=== PATIENT | male | born 1970 | race Caucasian/White ===

== ENCOUNTER → 2019-12-22 08:33 | Outpatient (CLI) | payer OTHER, SELFPAY ==
[2019-12-22 08:41] LABS: RBC Urine None Seen (0-5/HPF)
[2019-12-22 09:54] LABS: Cholesterol 228 mg/dL (140-199); Glucose 92 mg/dL (70-100); HDL Cholesterol 46 mg/dL (40-60); LDL Cholesterol Calculated 161 mg/dL (<100); Triglycerides 104 mg/dL (35-150)
[2019-12-22 10:23] LABS: Prostate Specific Antigen 1.23 ng/mL (0.10-4.00)
[2019-12-22 11:49] LABS: Appearance Urine UA CLEAR; Bilirubin Urine UA NEGATIVE (NEGATIVE); Color Urine UA YELLOW; Glucose Urine UA NEGATIVE (Negative); Ketones Urine UA NEGATIVE (NEGATIVE); Leukocyte Esterase Urine UA NEGATIVE (NEGATIVE); Nitrite Urine UA NEGATIVE (Negative); Occult Blood Urine UA NEGATIVE (Negative); Protein Urine UA NEGATIVE (Negative); Specific Gravity Urine UA 1.015 (1.000-1.035); Urobilinogen Urine UA 0.2 E.U./dL (0.2); pH Urine UA 7.5 (4.5-8.0)
[2019-12-22 11:57] LABS: Bacteria Urine Many (>30); Culture Indicated Urine Specimen Cultured; Squamous Epithelial Cell Urine 0-1 /HPF (0-5/HPF); WBC Urine 5-10/HPF (0-5/HPF)
== END ==
PROVIDERS: Family Provider Specialist; PCP Specialist; Referring Provider Specialist; Visit Provider Specialist
DX: Z00.01 Encounter for general adult medical examination with abnormal findings (principal); N40.0 Benign prostatic hyperplasia without lower urinary tract symptoms
CPT/HCPCS: 36415; 80061; 81001; 82947; 84153; 87086

== ENCOUNTER 2019-12-22 10:53 | Outpatient (RCR) | payer OTHER, SELFPAY ==
--- NOTE | 2019-12-22 12:42 | PT.OIE ---
Current Diagnoses Pain in right elbow (12/22/19) Lateral epicondylitis, right elbow (12/22/19) Strain of muscle, fascia and tendon of triceps, right arm, subsequent encounter (12/22/19) Visit Care Team Role Provider Type Grady Santos MD Attending Provider Non-Staff Family Provider Primary Care Provider Referring Provider Specialty: Medical Address: [address] [place] [address], [phone] Email: Physical Therapy Initial Evaluation PT-OP-A Visit Information Start: 12/22/19 11:59 Freq: Status: Active Protocol: Document 12/22/19 11:15 DCW (Rec: 12/22/19 12:42 DCW [id number]) Out-Patient Physical Therapy Visit Information Visit Information Visit Type Initial Evaluation Visit Start Time 11:15 Visit Stop Time 11:55 Total Visit Minutes 40 Visit Number 1 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 Pt notes that 2-3 months ago, they were working on door breakdowns with axes and pry-bars, and he got a zing in his elbow, and ever since, has been experiencing some occasional increases in pain with certain activities, which has led to minor limitations. Pt notes that over the past few months, he has been improving, but still gives him problems. Pt report he had thought it had gone away, but then it flared up again after going bowling with his daughter. PT-OP-C Subjective Start: 12/22/19 11:59 Freq: Status: Active Protocol: Document 12/22/19 11:15 DCW (Rec: 12/22/19 12:42 DCW [id number]) OP-PT Subjective Patient Comments Patient Comments I thought about canceling my appointment, because it is a lot better, but it still bothers me with some activities. Patient Reported Progress Improving Patient Questionnaires Quick Dash- Upper Extremity Quick Dash UE Score 20.45% Quick Dash UE Impairment 20 to 39% Impaired (Score 20- 39) OP-PT Pain Assessment Location Right Lateral Elbow Intensity 3 Scale Used Numeric (1 - 10) Description Aching,Dull Frequency Intermittent Pain Aggravating Factors Lifting Other Pain Aggravating Factors Bowling PT-OP-F Manual Assessment Start: 12/22/19 11:59 Freq: Status: Active Protocol: Document 12/22/19 11:15 DCW (Rec: 12/22/19 12:42 DCW [id number]) Manual Assessments Soft Tissue Assessment Soft Tissue Mobility Assessment Mild hypertonia and tenderness to palpation 1/4: complaint of pain, along lateral distal Tricep and common extensor tendon. Joint Mobility Assessment Joint Mobility Assessment Wrist and elbow WNL PT-OP-K Range of Motion Start: 12/22/19 11:59 Freq: Status: Active Protocol: Document 12/22/19 11:15 DCW (Rec: 12/22/19 12:42 DCW [id number]) Elbow/Forearm Range of Motion Elbow/Forearm Right Active Elbow/Forearm ROM WFL Yes ROM Testing Position Sitting Wrist Goniometric Range of Motion Wrist Right Wrist ROM WFL Yes PT-OP-L Special Tests Start: 12/22/19 11:59 Freq: Status: Active Protocol: Document 12/22/19 11:15 DCW (Rec: 12/22/19 12:42 DCW [id number]) Special Tests Elbow Special Tests Medial Epicondylitis Test Results Negative Lateral Epicondylitis Flexed Test Results Negative Lateral Epicondylitis Extended Test Results Mild tenderness PT-OP-M Strength Start: 12/22/19 11:59 Freq: Status: Active Protocol: Document 12/22/19 11:15 DCW (Rec: 12/22/19 12:42 DCW [id number]) Elbow/Forearm Strength Elbow and Forearm Manual Muscle Testing Right Flexion (C6) 5 Normal Extension (C7) 5 Normal Pronation 5 Normal Supination 5 Normal Wrist Strength Wrist Manual Muscle Testing Right Flexion (C7) 5 Normal Extension (C6) 5 Normal Ulnar Deviation 5 Normal Radial Deviation 5 Normal Hand Power Digger Operator/Pinch Strength Hand Dominance Hand Dominance Mixed Hand Strength Right Power Digger Operator (lbs) 135 Comments 3-trial average (150, 130, 125 ) Left Power Digger Operator (lbs) 128 Comments 3-trial average (140, 120, 125 ) PT-OP-T Assessment and Plan Start: 12/22/19 11:59 Freq: Status: Active Protocol: Document 12/22/19 11:15 DCW (Rec: 12/22/19 12:42 DCW [id number]) Physical Therapy Assessment Rehab Potential Rehabilitation Potential Excellent Evaluation Complexity Number of Personal Factors/Comorbidities 0 Number of Body Systems Impaired 1-2 Clinical Presentation at Evaluation Stable Impairments Impairments Soft Tissue Mobility,Tone Goals One Impairment Pt experiences pain with extension while 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 Pt's symptoms largely appear to be suggestive of a triceps strain , as well as potential lateral epicondylitis. Pt admits that he has just been trying to work through it, which has limited his ability to properly heal. Patient and therapist are in agreement that with pt's very physical job and his independent work out routine, he is likley inhibiting healing, and pt agrees to take it down a notch. Patient is likely to continue to improve independently without need for further skilled therapy, however pt's chart will be left open for one month in case pt notices a change/ worsening in symptoms. If pt does not schedule a follow-up appointment within one month, he will be discharged at that time. Physical Therapy Plan Frequency and Duration Frequency of Treatment 2x/Week Duration of Treatment 6 weeks Plan of Care Start Date 12/22/19 Plan of Care End Date 02/02/20 Therapeutic Interventions Therapeutic Interventions Home Exercise Program,Manual Therapy,Patient/Caregiver Education,Self-Care/Home Management,Therapeutic Activities,Therapeutic Exercises Modalities Cold Pack/Ice Massage,Electric Stimulation,Hot Packs, Iontophoresis,Ultrasound Next Visit Focus/Plan Next Note Type Treatment Note Next Visit Plan Assess pt improvement with independent exercises, STM, possible use of Iontophoresis with Dexamethasone, 4 mg/mL
--- NOTE | 2019-12-22 12:42 | PT.OPPOC ---
Physical, Occupational & Speech Therapy At [facility] Current Diagnoses Pain in right elbow (12/22/19) Lateral epicondylitis, right elbow (12/22/19) Strain of muscle, fascia and tendon of triceps, right arm, subsequent encounter (12/22/19) Visit Care Team Role Provider Type Grady Santos MD Attending Provider Non-Staff Family Provider Primary Care Provider Referring Provider Specialty: Medical Address: [address] [place] [address], [phone] Email: Plan Of Care PT-OP-T Assessment and Plan Start: 12/22/19 11:59 Freq: Status: Active Protocol: Document 12/22/19 11:15 DCW (Rec: 12/22/19 12:42 DCW [id number]) Physical Therapy Assessment Rehab Potential Rehabilitation Potential Excellent Evaluation Complexity Number of Personal Factors/Comorbidities 0 Number of Body Systems Impaired 1-2 Clinical Presentation at Evaluation Stable Impairments Impairments Soft Tissue Mobility,Tone Goals One Impairment 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 Pt's symptoms largely appear to be suggestive of a triceps strain , as well as potential lateral epicondylitis. Pt admits that he has just been trying to work through it, which has limited his ability to properly heal. Patient and therapist are in agreement that with pt's very physical job and his independent work out routine, he is likley inhibiting healing, and pt agrees to take it down a notch. Patient is likely to continue to improve independently without need for further skilled therapy, however pt's chart will be left open for one month in case pt notices a change/ worsening in symptoms. If pt does not schedule a follow-up appointment within one month, he will be discharged at that time. Physical Therapy Plan Frequency and Duration Frequency of Treatment 2x/Week Duration of Treatment 6 weeks Plan of Care Start Date 12/22/19 Plan of Care End Date 02/02/20 Therapeutic Interventions Therapeutic Interventions Home Exercise Program,Manual Therapy,Patient/Caregiver Education,Self-Care/Home Management,Therapeutic Activities,Therapeutic Exercises Modalities Cold Pack/Ice Massage,Electric Stimulation,Hot Packs, Iontophoresis,Ultrasound Next Visit Focus/Plan Next Note Type Treatment Note Next Visit Plan Assess pt improvement with independent exercises, STM, possible use of Iontophoresis with Dexamethasone, 4 mg/mL Plan of Care Dates Plan of Care Start Date 12/22/19 Plan of Care End Date 02/02/20 Electronically Signed by: Isidoro Higgins, PT 12/22/19 [id number] Please Sign and Return: I have reviewed this Plan of Care and certify that the skilled therapy services above are required to meet the patient?s needs. Physician Signature Date Printed Name and Credentials Clinical Instructor Signature Printed Name and Credentials
--- NOTE | 2020-06-05 17:18 | PT.OPDS ---
Current Diagnoses Pain in right elbow (12/22/19) Lateral epicondylitis, right elbow (12/22/19) Strain of muscle, fascia and tendon of triceps, right arm, subsequent encounter (12/22/19) Visit Care Team Role Provider Type Grady Santos MD Attending Provider Non-Staff Family Provider Primary Care Provider Referring Provider Specialty: Medical Address: [address] [place] [address], [phone] Email: Visit Number Visit Number 1 Discharge Summary PT-OP-B Current Condition Start: 12/22/19 11:59 Freq: Status: Active Protocol: Document 12/22/19 11:15 DCW (Rec: 12/22/19 12:42 DCW [id number]) Current Condition History of Current Condition Onset Date two months Current Complaints R triceps and forearm tenderness History of Current Condition 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 Pt notes that 2-3 months ago, they were working on door breakdowns with axes and pry-bars, and he got a zing in his elbow, and ever since, has been experiencing some occasional increases in pain with certain activities, which has led to minor limitations. Pt notes that over the past few months, he has been improving, but still gives him problems. Pt report he had thought it had gone away, but then it flared up again after going bowling with his daughter. PT-OP-C Subjective Start: 12/22/19 11:59 Freq: Status: Active Protocol: Document 12/22/19 11:15 DCW (Rec: 12/22/19 12:42 DCW [id number]) OP-PT Subjective Patient Comments Patient Comments I thought about canceling my appointment, because it is a lot better, but it still bothers me with some activities. Patient Reported Progress Improving Patient Questionnaires Quick Dash- Upper Extremity Quick Dash UE Score 20.45% Quick Dash UE Impairment 20 to 39% Impaired (Score 20- 39) OP-PT Pain Assessment Location Right Lateral Elbow Intensity 3 Scale Used Numeric (0 - 10) Description Aching,Dull Frequency Intermittent Pain Aggravating Factors Lifting Other Pain Aggravating Factors Bowling PT-OP-F Manual Assessment Start: 12/22/19 11:59 Freq: Status: Active Protocol: Document 12/22/19 11:15 DCW (Rec: 12/22/19 12:42 DCW [id number]) Manual Assessments Soft Tissue Assessment Soft Tissue Mobility Assessment Mild hypertonia and tenderness to palpation 1/4: complaint of pain, along lateral distal Tricep and common extensor tendon. Joint Mobility Assessment Joint Mobility Assessment Wrist and elbow WNL PT-OP-K Range of Motion Start: 12/22/19 11:59 Freq: Status: Active Protocol: Document 12/22/19 11:15 DCW (Rec: 12/22/19 12:42 DCW [id number]) Elbow/Forearm Range of Motion Elbow/Forearm Right Active Elbow/Forearm ROM WFL Yes ROM Testing Position Sitting Wrist Goniometric Range of Motion Wrist Right Wrist ROM WFL Yes PT-OP-L Special Tests Start: 12/22/19 11:59 Freq: Status: Active Protocol: Document 12/22/19 11:15 DCW (Rec: 12/22/19 12:42 DCW [id number]) Special Tests Elbow Special Tests Medial Epicondylitis Test Results Negative Lateral Epicondylitis Flexed Test Results Negative Lateral Epicondylitis Extended Test Results Mild tenderness PT-OP-M Strength Start: 12/22/19 11:59 Freq: Status: Active Protocol: Document 12/22/19 11:15 DCW (Rec: 12/22/19 12:42 DCW [id number]) Elbow/Forearm Strength Elbow and Forearm Manual Muscle Testing Right Flexion (C6) 5 Normal Extension (C7) 5 Normal Pronation 5 Normal Supination 5 Normal Wrist Strength Wrist Manual Muscle Testing Right Flexion (C7) 5 Normal Extension (C6) 5 Normal Ulnar Deviation 5 Normal Radial Deviation 5 Normal Hand Sales Service Route Manager/Pinch Strength Hand Dominance Hand Dominance Mixed Hand Strength Right Sales Service Route Manager (lbs) 135 Comments 3-trial average (150, 130, 125 ) Left Sales Service Route Manager (lbs) 128 Comments 3-trial average (140, 120, 125 ) PT-OP-T Assessment and Plan Start: 12/22/19 11:59 Freq: Status: Active Protocol: Document 06/05/20 17:17 DCW (Rec: 06/05/20 17:17 DCW [id number]) Physical Therapy Assessment Assessment Summary Assessment Pt did not return phone calls from scheduling department following reopening of clinic after Covid-19 closure. Pt will be discharged from skilled therapy at this time.
== END 2020-06-06 08:25 ==
LOC: PHYS 10:53
PROVIDERS: Family Provider Specialist; PCP Specialist; Referring Provider Specialist; Visit Provider Specialist
DX: S46.311A Strain of muscle, fascia and tendon of triceps, right arm, initial encounter (principal); S46.311D Strain of muscle, fascia and tendon of triceps, right arm, subsequent encounter; M25.521 Pain in right elbow; M77.11 Lateral epicondylitis, right elbow
CPT/HCPCS: 97161

== ENCOUNTER 2020-04-13 05:55 | Emergency (ER) | payer OTHER, SELFPAY ==
[2020-04-13 06:04] VITALS: BP 154/92; PULSE 54; RESP 18; TEMP 36.6; O2SAT 96
--- NOTE | 2020-04-13 06:20 | DI.CT.S_ITS ---
PROCEDURE: CT KIDNEY URETER BLADDER (KUB) INDICATIONS: R flank pain, radiation to groin TECHNIQUE: Noncontrast 5 mm thick sections acquired from the diaphragms to the symphysis. 5 mm thick coronal and sagittal reformats were then performed. For radiation dose reduction, the following was used: automated exposure control, adjustment of mA and/or kV according to patient size. COMPARISON: None. FINDINGS: Image quality: Excellent. Lung bases: Lung bases are clear. Heart size is normal. Urinary system: Both kidneys are normal in size. Bilateral renal cysts are noted. There is prominence of right renal collecting system and right ureter extending to the level of right UVJ with 4 mm stone seen within right UVJ. Mild right perinephric fat stranding is seen. There is no left-sided hydronephrosis or perinephric fat stranding. Left ureter is within normal limits. Bladder wall thickness is normal; no calcified bladder stones. Other solid organs: Liver is normal in size. Gallbladder is unremarkable. Pancreas is normal in contours. Spleen is normal in size. No adrenal nodules. Peritoneum and bowel: Unenhanced bowel loops demonstrate normal wall thickness and caliber. No free fluid or air. The appendix is visualized and is within normal limits. Nodes and vessels: No retroperitoneal or mesenteric adenopathy by size criteria. Aorta and inferior vena cava are normal in caliber. Abdominal wall: No ventral hernias. Pelvis: No free pelvic fluid. No inguinal hernias or adenopathy. Bones: No suspicious bony lesions. No vertebral body compression fractures. Degenerative disc disease at L4-5 and L5-S1 levels are seen. IMPRESSION: 1. 4 mm right UVJ stone with mild right-sided hydronephrosis and hydroureter and mild right perinephric fat stranding. 2. No left-sided renal stone hydronephrosis. Normal-appearing left ureter and urinary bladder. 3. Normal appendix. No free fluid or free air. Dictated by: Ricky Urbina M.D. on 04/13/2020 at 7:28 Approved by: Ricky Urbina M.D. on 04/13/2020 at 7:31
[2020-04-13] MEDS: ONDANSETRON 4 MG/2 ML INJ IV (06:28)
[2020-04-13] MEDS: SODIUM CHLORIDE 0.9% 1,000 ML 1000 ML IV (06:28)
[2020-04-13] MEDS: KETOROLAC 60 MG/2 ML VIAL 15 MG IV (06:29)
[2020-04-13 06:30] LABS: Add Manual Diff / Slide Review NO; Basophils Absolute Auto 0 /uL (0-100); Basophils Percent Auto 0.7 % (0-2); Eosinophils Absolute Auto 300 /uL (0-450); Eosinophils Percent Auto 3.9 % (2-4); Hematocrit 44.8 % (41-53); Hemoglobin 15.4 g/dL (13.5-17.5); Lymphocytes Absolute Auto 2200 /uL (1100-4500); Lymphocytes Percent Auto 30.7 % (25-40); Mean Corpuscular HGB Conc 34.4 % (30-36); Mean Corpuscular Hemoglobin 29.2 PG (26-34); Mean Corpuscular Volume 84.7 fL (80-100); Monocytes Absolute Auto 600 /uL (0-900); Monocytes Percent Auto 8.5 % (3-14); Neutrophils Absolute Auto 4100 /uL (1500-7000); Neutrophils Percent Auto 56.2 % (50-75); Platelet Count 257 X10^3/uL (150-400); Red Blood Cell Count 5.28 X10^6/uL (4.5-5.9); Red Cell Distribution Width 13.7 % (11.6-14.8); White Blood Cell Count 7.3 X10^3/uL (4.5-11.0)
[2020-04-13 06:38] LABS: BUN Creatinine Ratio 15.2 (6-22); Blood Urea Nitrogen 16 mg/dL (9-20); Calcium 8.6 mg/dL (8.4-10.2); Carbon Dioxide 24 mmol/L (22-32); Chloride 105 mmol/L (98-107); Estimated Glomerular Filt Rate > 60.0 mL/min (>60); Glucose 93 mg/dL (70-100); HEMOLYSIS < 15 (0-50); Potassium 3.9 mmol/L (3.4-5.1); Sodium 138 mmol/L (137-145)
--- NOTE | 2020-04-13 06:45 | ED.BACK ---
HPI - Back Pain/Injury General Chief Complaint: Back Pain/Injury Stated Complaint: right flank pain Time Seen by Provider: 04/13/20 05:55 Source: patient Mode of arrival: Ambulatory Limitations: no limitations History of Present Illness HPI Narrative: 49-year-old male nonsmoker with noncontributory medical history presents with a chief complaint of severe, sudden onset right flank pain with radiation into the groin. He denies provocation or palliation. He denies dysuria, frequency or urgency. He is nauseated but denies any vomiting. He denies definitive diagnosis of prior kidney stone but has had 1 prior episode MD Complaint: back pain Onset (ago): hour(s) Duration: intermittent Location: right flank Severity: moderate Quality: burning and sharp Radiation: flank Relieving factors: none Exacerbating factors: none Related Data Previous Rx's Medication Instructions Recorded cephalexin [Keflex] 500 mg PO QID 7 Days #28 cap 04/13/20 hydrocodone-acetaminophen 1 tab PO Q4-6H PRN #10 tab 04/13/20 ketorolac 10 mg PO Q6H PRN #14 tab 04/13/20 ondansetron 4 mg PO TID-QID PRN #10 tab 04/13/20 Allergies Allergy/AdvReac Type Severity Reaction Status Date / Time No Known Drug Allergies Allergy Verified 04/13/20 06:13 Review of Systems Constitutional Constitutional: Denies chills, Denies fatigue, Denies fever(s), Denies frequent falls, Denies lethargy and Denies weakness Eyes Eyes: Denies change in vision, Denies eye discharge, Denies irritation and Denies loss of vision ENT Ears, Nose, Mouth, and Throat: Denies change in voice, Denies dizziness, Denies neck pain, Denies sore throat and Denies throat swelling Cardiovascular Cardiovascular: Denies chest pain, Denies irregular heart rhythm, Denies lightheadedness, Denies palpitations, Denies dyspnea, Denies dyspnea on exertion and Denies orthopnea Respiratory Respiratory: Denies cough, Denies dyspnea, Denies dyspnea on exertion and Denies wheezing Gastrointestinal Gastrointestinal: Denies abdominal pain, Denies change in bowel habits, Denies diarrhea, Denies nausea and Denies vomiting Musculoskeletal Musculoskeletal: Denies neck pain and Denies numbness Integumentary/Breasts Skin/Breast: Denies pruritus, Denies erythema, Denies rash and Denies wounds Neurologic Neurologic: Denies behavioral changes, Denies confusion, Denies dizziness, Denies frequent falls, Denies loss of vision, Denies numbness and Denies weakness Psychiatric Psychiatric: Denies anxiety, Denies behavioral changes, Denies confusion, Denies depression, Denies homicidal ideation and Denies suicidal ideation Endocrine Endocrine: Denies fatigue, Denies flushing and Denies palpitations Hematologic/Lymphatic Hematologic/Lymphatic: Denies easy bruising Allergic/Immunologic Allergic/Immunologic: Denies urticaria, Denies throat swelling and Denies wheezing Patient History Social History Smoking Status: Never smoker Smoking Status: Never smoker alcohol intake frequency: a few times a month Substance Use Type: does not use Exam Narrative Exam Narrative: GENERAL: [49] year old patient appears stated age. Well-nourished, well-developed patient, in mild distress. Rubbing his flank, pacing HEAD: Atraumatic. Normocephalic. EYES: Pupils equal round and reactive. Extraocular motions intact. No scleral icterus. No injection or drainage. ENT: Nose without bleeding, purulent drainage. Throat without erythema, tonsillar hypertrophy or exudate. Airway patent. NECK: Trachea midline. Non tender CARDIOVASCULAR: Regular rate and rhythm without murmurs, gallops, or rubs. RESPIRATORY: Clear to auscultation. Breath sounds equal bilaterally. No wheezes, rales, or rhonchi. GASTROINTESTINAL: Abdomen soft, non-tender, nondistended. EXTREMITIES: No edema or joint tenderness. BACK: Nontender without deformity or crepitance. No flank tenderness. NEURO: AOx3. SKIN: No rash or erythema of visible areas Initial Vital Signs Initial Vital Signs: Vital Signs Temperature 97.9 F 04/13/20 06:04 Pulse Rate 54 L 04/13/20 06:04 Respiratory Rate 18 04/13/20 06:04 Blood Pressure 154/92 H 04/13/20 06:04 Pulse Oximetry 96 04/13/20 06:04 Course Orders Ordered: Discontinued Medications Hydromorphone HCl (Dilaudid) 1 mg IV NOW ONE Stop: 04/13/20 07:24 Last Admin: 04/13/20 07:37 Dose: 1 mg Documented by: RSTONE Sodium Chloride (Normal Saline 0.9%) 1,000 mls @ 1,000 mls/hr IV BOLUS ONE Stop: 04/13/20 07:19 Last Infusion: 04/13/20 07:28 Dose: 0 mls/hr Documented by: Admin: 04/13/20 06:28 Dose: 1,000 mls/hr Documented by: LAVELLE Ketorolac Tromethamine (Toradol) 15 mg IV NOW ONE Stop: 04/13/20 06:21 Last Admin: 04/13/20 06:29 Dose: 15 mg Documented by: LAVELLE Ondansetron HCl (Zofran) 4 mg IV NOW ONE Stop: 04/13/20 06:21 Last Admin: 04/13/20 06:28 Dose: 4 mg Documented by: LAVELLE Vital Signs Vital signs: Vital Signs - 8 hr 04/13/20 06:04 04/13/20 07:40 Temperature 97.9 F Pulse Rate 54 L 49 L Respiratory Rate 18 18 Blood Pressure 154/92 H Blood Pressure [Right Arm] 153/71 H Pulse Oximetry 96 98 MDM - Back Pain/Injury Lab Data Result diagrams: 04/13/20 06:20 04/13/20 06:20 Labs: Lab Results 04/13/20 04/13/20 Range/Units 06:20 06:20 WBC 7.3 (4.5-11.0) X10^3/uL RBC 5.28 (4.5-5.9) X10^6/uL Hgb 15.4 (13.5-17.5) g/dL Hct 44.8 (41-53) % MCV 84.7 (80-100) fL MCH 29.2 (26-34) PG MCHC 34.4 (30-36) % RDW 13.7 (11.6-14.8) % Plt Count 257 (150-400) X10^3/uL Neut % (Auto) 56.2 (50-75) % Lymph % (Auto) 30.7 (25-40) % [place] % (Auto) 8.5 (3-14) % Eos % (Auto) 3.9 (2-4) % Baso % (Auto) 0.7 (0-2) % Neut # (Auto) 4100 (4534-7642) /uL Lymph # (Auto) 2200 (0867-5541) /uL [place] # (Auto) 600 (0-900) /uL Eos # (Auto) 300 (0-450) /uL Baso # (Auto) 0 (0-100) /uL Sodium 138 (137-145) mmol/L Potassium 3.9 (3.4-5.1) mmol/L Chloride 105 (98-107) mmol/L Carbon Dioxide 24 (22-32) mmol/L BUN 16 (9-20) mg/dL Creatinine 1.05 (0.66-1.25) mg/dL Estimated GFR > 60.0 (>60) mL/min BUN/Creatinine Ratio 15.2 (6-22) Glucose 93 (70-100) mg/dL Calcium 8.6 (8.4-10.2) mg/dL Imaging Data CT scan - abdomen/pelvis: Radiologist's Impression: [address] [address] [address] Scan Report Signed Patient: Mani Donald GMR#: [id number] : 1970Acct:[id number] Age/Sex: 49 / MDate of Service: 04/13/20 Loc: ED Accession Number: [id number] Procedure: CT kidney ureter bladder (KUB) Ordering Provider: Rambo García D.O. PROCEDURE: CT KIDNEY URETER BLADDER (KUB) INDICATIONS: R flank pain, radiation to groin TECHNIQUE: Noncontrast 5 mm thick sections acquired from the diaphragms to the symphysis. 5 mm thick coronal and sagittal reformats were then performed. For radiation dose reduction, the following was used: automated exposure control, adjustment of mA and/or kV according to patient size. COMPARISON: None. FINDINGS: Image quality: Excellent. Lung bases: Lung bases are clear. Heart size is normal. Urinary system: Both kidneys are normal in size. Bilateral renal cysts are noted. There is prominence of right renal collecting system and right ureter extending to the level of right UVJ with 4 mm stone seen within right UVJ. Mild right perinephric fat stranding is seen. There is no left-sided hydronephrosis or perinephric fat stranding. Left ureter is within normal limits. Bladder wall thickness is normal; no calcified bladder stones. Other solid organs: Liver is normal in size. Gallbladder is unremarkable. Pancreas is normal in contours. Spleen is normal in size. No adrenal nodules. Peritoneum and bowel: Unenhanced bowel loops demonstrate normal wall thickness and caliber. No free fluid or air. The appendix is visualized and is within normal limits. Nodes and vessels: No retroperitoneal or mesenteric adenopathy by size criteria. Aorta and inferior vena cava are normal in caliber. Abdominal wall: No ventral hernias. Pelvis: No free pelvic fluid. No inguinal hernias or adenopathy. Bones: No suspicious bony lesions. No vertebral body compression fractures. Degenerative disc disease at L4-5 and L5-S1 levels are seen. IMPRESSION: 1. 4 mm right UVJ stone with mild right-sided hydronephrosis and hydroureter and mild right perinephric fat stranding. 2. No left-sided renal stone hydronephrosis. Normal-appearing left ureter and urinary bladder. 3. Normal appendix. No free fluid or free air. Dictated by: Ricky Urbina M.D. on 04/13/2020 at 7:28 Approved by: Ricky Urbina M.D. on 04/13/2020 at 7:31 Discharge Plan Departure Patient Disposition: Home Clinical Impression: Kidney calculus Discharge Date/Time: 04/13/20 08:36 Instructions: DI for Kidney Stones Activity Restrictions/Additional Instructions: *You have been diagnosed with [right-sided kidney stone] *What to do: *Take medications as directed *Follow up with your primary care provider in 2-3 days, call for an appointment. Let them know you were seen in the Emergency Department and that we ask that you be seen in follow up *Return to ER if you should have any new, worsening or concerning symptoms Prescriptions: New hydrocodone-acetaminophen 5-325 mg tablet 1 tab PO Q4-6H PRN (Reason: pain) Qty: 10 RF: 0 cephalexin [Keflex] 500 mg capsule 500 mg PO QID 7 Days Qty: 28 RF: 0 ketorolac 10 mg tablet 10 mg PO Q6H PRN (Reason: pain) Qty: 14 RF: 0 ondansetron 4 mg tablet,disintegrating 4 mg PO TID-QID PRN (Reason: nausea and vomiting) Qty: 10 RF: 0 Referrals: Denice Unger MD [Physician] - Grady Santos MD [Primary Care Provider] -
[2020-04-13] MEDS: HYDROMORPHONE 1 MG INJ IV (07:37)
[2020-04-13 07:40] VITALS: BP 153/71; PULSE 49; RESP 18; O2SAT 98
[2020-04-13 08:34] VITALS: BP 132/78; PULSE 50; RESP 16; O2SAT 98
== END 2020-04-13 08:36 | disposition home or self-care (01) ==
PROVIDERS: Emergency Provider Emergency Medicine; Family Provider Specialist; PCP Specialist
DX: N20.0 Calculus of kidney (principal); R11.0 Nausea; Z87.442 Personal history of urinary calculi
CPT/HCPCS: 36415; 74176; 80048; 85025; 96361; 96374; 96375; 99284; J1170; J1885; J2405

== ENCOUNTER → 2022-05-15 09:52 | Outpatient (CLI) | payer OTHER, SELFPAY ==
[2022-05-15 11:16] LABS: Add Manual Diff / Slide Review NO; Basophils Absolute Auto 0 /uL (0-100); Basophils Percent Auto 0.6 % (0-2); Eosinophils Absolute Auto 200 /uL (0-450); Eosinophils Percent Auto 2.7 % (2-4); Hematocrit 49.2 % (41-53); Hemoglobin 16.8 g/dL (13.5-17.5); Lymphocytes Absolute Auto 1600 /uL (1100-4500); Lymphocytes Percent Auto 20.6 % (25-40); Mean Corpuscular HGB Conc 34.2 % (30-36); Mean Corpuscular Hemoglobin 29.1 PG (26-34); Mean Corpuscular Volume 85.2 fL (80-100); Monocytes Absolute Auto 600 /uL (0-900); Monocytes Percent Auto 7.2 % (3-14); Neutrophils Absolute Auto 5500 /uL (1500-7000); Neutrophils Percent Auto 68.9 % (50-75); Platelet Count 297 X10^3/uL (150-400); Red Blood Cell Count 5.77 X10^6/uL (4.5-5.9); Red Cell Distribution Width 14.4 % (11.6-14.8)
[2022-05-15 11:25] LABS: Appearance Urine UA CLOUDY; Bilirubin Urine UA NEGATIVE (NEGATIVE); Color Urine UA YELLOW; Glucose Urine UA TRACE g/dL (Negative); Ketones Urine UA NEGATIVE (NEGATIVE); Leukocyte Esterase Urine UA NEGATIVE (NEGATIVE); Nitrite Urine UA NEGATIVE (Negative); Occult Blood Urine UA NEGATIVE (Negative); Protein Urine UA 1+ (Negative); Specific Gravity Urine UA 1.015 (1.000-1.035); Urobilinogen Urine UA 0.2 E.U./dL (0.2); pH Urine UA 7.5 (4.5-8.0)
[2022-05-15 11:26] LABS: Alanine Aminotransferase 33 IU/L (<50); Albumin 4.2 g/dL (3.5-5.0); Albumin Globulin Ratio 1.4 (1.0-2.8); Alkaline Phosphatase 108 U/L (38-126); Aspartate Aminotransferase 25 IU/L (17-59); BUN Creatinine Ratio 18.1 (6-22); Blood Urea Nitrogen 15 mg/dL (9-20); Carbon Dioxide 29 mmol/L (22-32); Chloride 102 mmol/L (98-107); Estimated Glomerular Filt Rate > 60 mL/min (>60); Globulin 3.1 g/dL (1.7-4.1); Glucose 99 mg/dL (70-100); HEMOLYSIS < 15 (0-50); Sodium 140 mmol/L (137-145); Total Protein 7.3 g/dL (6.3-8.2)
[2022-05-15 11:35] LABS: RBC Urine 0-1/HPF (0-5/HPF)
[2022-05-15 11:36] LABS: Amorphous Sediment Urine 3+; Bacteria Urine Many (>30); Culture Indicated Urine Cult Not Indicated; Mucus Urine 2+ (Negative); WBC Urine None Seen (0-5/HPF)
[2022-05-15 12:35] LABS: HIV 1 & 2 Ab/Ag 4th Gen Combo NEGATIVE (NEGATIVE); Hep C Virus Ab w/Reflex Quant NEGATIVE s/c (NEGATIVE)
[2022-05-16 03:49] LABS: Hepatitis B Core AB w/Reflex Negative (Negative)
[2022-05-19 13:33] LABS: QuantiFERON Mitogen Value >10.00 IU/mL (.); QuantiFERON TB Gold Plus Negative (Negative)
== END ==
PROVIDERS: Family Provider Specialist; PCP Specialist
DX: L40.0 Psoriasis vulgaris (principal)
CPT/HCPCS: 36415; 80053; 81001; 85025; 86480; 86704; 86803; 87389

== ENCOUNTER → 2022-11-11 09:41 | Outpatient (CLI) | payer OTHER, SELFPAY ==
[2022-11-11 10:19] LABS: Appearance Urine UA CLEAR; Bilirubin Urine UA NEGATIVE (NEGATIVE); Color Urine UA YELLOW; Glucose Urine UA NEGATIVE (Negative); Ketones Urine UA NEGATIVE (NEGATIVE); Leukocyte Esterase Urine UA TRACE (NEGATIVE); Nitrite Urine UA NEGATIVE (Negative); Occult Blood Urine UA NEGATIVE (Negative); Protein Urine UA TRACE (Negative); Specific Gravity Urine UA 1.015 (1.000-1.035); Urobilinogen Urine UA 0.2 E.U./dL (0.2)
[2022-11-11 10:30] LABS: Bacteria Urine None Seen; Culture Indicated Urine Specimen Cultured; RBC Urine None Seen (0-5/HPF); WBC Urine 0-1/HPF (0-5/HPF)
[2022-11-11 10:34] LABS: Hematocrit 48.6 % (41-53); Hemoglobin 16.4 g/dL (13.5-17.5); Mean Corpuscular HGB Conc 33.6 % (30-36); Mean Corpuscular Hemoglobin 28.6 PG (26-34); Platelet Count 285 X10^3/uL (150-400); Red Blood Cell Count 5.72 X10^6/uL (4.5-5.9); Red Cell Distribution Width 14.1 % (11.6-14.8); White Blood Cell Count 6.4 X10^3/uL (4.5-11.0)
[2022-11-11 10:54] LABS: Alanine Aminotransferase 35 IU/L (<50); Alkaline Phosphatase 108 U/L (38-126); Aspartate Aminotransferase 27 IU/L (17-59); BUN Creatinine Ratio 15.9 (6-22); Bilirubin Total 1.1 mg/dL (0.2-1.3); Blood Urea Nitrogen 13 mg/dL (9-20); Calcium 8.8 mg/dL (8.4-10.2); Carbon Dioxide 27 mmol/L (22-32); Chloride 105 mmol/L (98-107); Estimated Glomerular Filt Rate > 60 mL/min (>60); Glucose 92 mg/dL (70-100); Potassium 4.1 mmol/L (3.4-5.1); Sodium 139 mmol/L (137-145); Total Protein 7.3 g/dL (6.3-8.2)
[2022-11-11 11:19] LABS: Prostate Specific Antigen 1.13 ng/mL (0.10-4.00)
[2022-11-11 11:21] LABS: Testosterone 283 ng/dL (71.8-623)
[2022-11-12 20:24] LABS: HIV 1 & 2 Ab/Ag 4th Gen Combo NEGATIVE (NEGATIVE)
[2022-11-13 16:43] LABS: Albumin 4.1 g/dL (3.5-5.0); Albumin Globulin Ratio 1.3 (1.0-2.8); Globulin 3.2 g/dL (1.7-4.1); HEMOLYSIS < 15 (0-50)
== END ==
PROVIDERS: Family Provider Specialist; PCP Specialist; Referring Provider Specialist; Visit Provider Specialist
DX: Z00.00 Encounter for general adult medical examination without abnormal findings (principal); E29.1 Testicular hypofunction
CPT/HCPCS: 36415; 80053; 81001; 84153; 84403; 85027; 87086; 87389; 87522

== ENCOUNTER → 2024-06-27 09:30 | Outpatient (CLI) | payer OTHER, SELFPAY ==
[2024-06-27 12:23] LABS: Cholesterol 260 mg/dL (140-199); HDL Cholesterol 55 mg/dL (40-60); LDL Cholesterol Calculated 183 mg/dL (<100); Triglycerides 110 mg/dL (35-150)
[2024-07-02 11:12] LABS: Percent Free Testosterone 3.85 % (1.50-4.20); Testosterone Free 10.31 ng/dL (5.00-21.00); Testosterone Total 267.9 ng/dL (264.0-916.0)
== END ==
PROVIDERS: Family Provider Specialist; PCP Family Medicine; Referring Provider Family Medicine; Visit Provider Family Medicine
DX: Z13.220 Encounter for screening for lipoid disorders (principal); R79.89 Other specified abnormal findings of blood chemistry
CPT/HCPCS: 36415; 80061; 84402; 84403

== ENCOUNTER → 2024-12-01 12:14 | Outpatient (CLI) | payer OTHER, SELFPAY ==
--- NOTE | 2024-12-01 12:16 | DI.RAD.S_ITS ---
PROCEDURE: XR CHEST 2V INDICATIONS: subacute cough x4 weeks, low energy TECHNIQUE: 2 views of the chest were acquired. COMPARISON: None. FINDINGS: Surgical changes and devices: None. Lungs and pleura: Lungs are clear. No pleural effusions or pneumothorax. Mediastinum: Mediastinal contours are normal. Heart size is normal. Bones and chest wall: No suspicious bony abnormalities. Soft tissues appear unremarkable. IMPRESSION: No acute cardiopulmonary abnormality is seen. Dictated by: Juan J Masters M.D. on 12/01/2024 at 13:39 Approved by: Juan J Masters M.D. on 12/01/2024 at 13:39
[2024-12-01 13:07] LABS: HEMOLYSIS < 15 (0-50); Iron 109 ug/dL (49-181)
[2024-12-01 13:18] LABS: Percent Iron Saturation 44 % (20-50); Total Iron Binding Capacity 249 ug/dL (261-462); Transferrin 241 mg/dL (206-381)
[2024-12-01 13:39] LABS: Cortisol AM (Before 10AM) 5.91 ug/dL (4.46-22.7)
[2024-12-01 13:43] LABS: Ferritin 218 ng/mL (18-464)
[2024-12-01 14:42] LABS: Follicle Stimulating Hormone 4.39 mIU/mL; Luteinizing Hormone 4.56 mIU/mL
== END ==
LOC: LAB 12:15
PROVIDERS: Family Provider Specialist; PCP Family Medicine; Referring Provider Family Medicine; Visit Provider Family Medicine
DX: R05.9 Cough, unspecified (principal); J06.9 Acute upper respiratory infection, unspecified; R79.89 Other specified abnormal findings of blood chemistry; R53.83 Other fatigue
CPT/HCPCS: 36415; 71046; 82533; 82728; 83001; 83002; 83540; 83550; 84403

== ENCOUNTER → 2025-10-09 15:05 | Outpatient (CLI) | payer OTHER, SELFPAY ==
--- NOTE | 2025-10-09 | DI.MRI.S_ITS ---
PROCEDURE: MR KNEE RT WO CON INDICATIONS: Eval lateral meniscus cartilage right knee TECHNIQUE: Noncontrast sagittal PD fast spin echo and T2 fast spin echo with fat saturation, sagittal 3-D FLASH with fat saturation; coronal T1 spin echo and PD fast spin echo with fat saturation, and axial PD fast spin echo with fat saturation through the knee. COMPARISON: None. FINDINGS: Image quality: Excellent Menisci: In the medial meniscus, there is predominantly horizontal tear of the meniscus body. Moderate extrusion of the medial meniscus body. The lateral meniscus is unremarkable. Cruciate ligaments: The anterior and posterior cruciate ligaments appear intact. Medial structures: Medial bowing of the MCL, without tear. Lateral structures: The lateral collateral ligament, long and short heads of the biceps femoris tendon appear intact. Mild tenosynovitis of the popliteus tendon. The posterosuperior and anteroinferior popliteomeniscal fascicles appear intact. The arcuate and fabellofibular ligaments appear intact, on either side of the lateral inferior geniculate artery. Iliotibial band appears normal. Anterior structures: The quadriceps and patellar tendons appear intact. Patellar alignment is normal. No femoral trochlear dysplasia or ventral trochlear prominence. No edema in the infrapatellar fat pad. Bones and cartilage: Moderate chondrosis of the medial compartment, with mild subchondral marrow edema in the anterior aspect of the medial tibial plateau. Mild chondrosis of the lateral compartment. No acute fracture. Mild chondrosis of the patellofemoral compartment, with multilevel mild subchondral marrow edema. Joint space: Small knee effusion. No popliteal cyst. Mild tendinosis of the distal semimembranosus. Subcutaneous edema of the anterior knee. No intra-articular body. IMPRESSION: 1. Tear of the medial meniscus. 2. Moderate, medial compartment predominant chondrosis. Dictated by: Macy Mendieta M.D. on 10/10/2025 at 11:05 Approved by: Macy Mendieta M.D. on 10/10/2025 at 11:24
== END ==
LOC: MRI 15:06
PROVIDERS: Family Provider Specialist; PCP Family Medicine; Referring Provider Orthopaedic Surgery; Visit Provider Orthopaedic Surgery
DX: S83.241A Other tear of medial meniscus, current injury, right knee, initial encounter (principal); M22.41 Chondromalacia patellae, right knee; M23.91 Unspecified internal derangement of right knee; M25.461 Effusion, right knee
CPT/HCPCS: 73721